=== PATIENT | female | born 1955 | race Caucasian/White ===

== ENCOUNTER → 2020-06-14 | Outpatient (CLI) | payer OTHER ==
[~2020-06-14] MED LIST: APPLE CIDER VI600 MG PO; EUTHYROX50 MCG PO; HAIR, SKIN AND1 EAC1 PO; HYDROCHLOROTHIA25 M1 PO; IBUPROFEN 800800 M1 PO; NORVASC5 MG PO; OMEPRAZOLE 20 M20 M1 PO; PRAMIPEXOLE DI1.5 MG PO; PROBIOTIC1 EAC7 PO; REMERON 30 MG T30 M1 PO; VITAMIN D31250 MCG PO
[2020-06-14 13:51] LABS: HEMATOCRIT 42.4 % (37.0-47.0); HEMOGLOBIN 13.7 gm/dL (12.0-15.0); MCHC 32.4 g/dL (28.0-37.0); MCV 89.3 fL (80.0-100.0); RBC 4.75 mil/uL (4.20-5.00); RDW 14.5 % (10.5-14.5); WBC 5.6 thou/uL (4.0-11.0)
[2020-06-14 14:00] LABS: ALBUMIN 4.5 g/dL (3.4-5.0); CALCIUM 9.5 mg/dL (8.5-10.1); CREATININE 1.1 mg/dL (0.6-1.0); POTASSIUM 4.1 mmol/L (3.5-5.1)
[2020-06-14 14:03] LABS: PROTIME 10.3 Seconds (9.3-11.4)
[2020-06-14 14:05] LABS: URINE BILIRUBIN NEGATIVE (Negative); URINE BLOOD NEGATIVE (Negative); URINE CLARITY CLEAR; URINE COLOR YELLOW; URINE GLUCOSE-RANDOM* NEGATIVE (Negative); URINE KETONES NEGATIVE (Negative); URINE NITRITE-REFLEX NEGATIVE (Negative); URINE PROTEIN (DIPSTICK) NEGATIVE (Negative); URINE SPECIFIC GRAVITY 1.025 (1.005-1.035); URINE UROBILINOGEN 0.2 E.U./dl (0.2-1.0)
[2020-06-14 14:06] LABS: URINE LEUKOCYTES-REFLEX 1+ (Negative)
[2020-06-14 14:22] LABS: SQUAMOUS 0-3 Few /LPF (0-3); URINE RBC None Seen /HPF (0-2)
[2020-06-14 14:23] LABS: BACTERIA-REFLEX >30 Many /HPF (None Seen); CASTS None Seen /LPF (None Seen); CRYSTALS None Seen /LPF (None Seen); URINE WBC-REFLEX 6-15 Few /HPF (0-5)
--- NOTE | 2020-06-17 07:20 | EKG ---
[place] [address] [facility] [place] [address] ELECTROCARDIOGRAM REPORT Name: CRESCENCIOALLA Room #: REG [facility]#: [id number] Admission: 06/14/20 Attend Phys: Edgard Carrasco MD Discharge: Date of : 51 Report #: [id number] [facility] Test Date: 2020-06-14 Test Time: 13:07:28 Pat Name: ALLA PRATHER Department: Room: Gender: F Communications Tech: Thong CALVERT : 1955 Requested By: Edgard Carrasco Order Number: [id number] MD: Vlad Georges Measurements Intervals [place] Rate: 86 P: 66 IL: 173 QRS: 38 QRSD: 90 T: 50 QT: 390 QTc: 467 Interpretive Statements Sinus rhythm Compared to ECG 04/03/2004 12:22:00 No significant changes Electronically Signed On 06-17-2020 7:20:01 CDT by Vlad Georges [email or web address] <ELECTRONICALLY SIGNED> By: Vlad Georges MD, [facility] 06/17/20 0720 1307 1307 Vlad Georges MD, FACC /EPI
== END ==
LOC: LAB 11:28
PROVIDERS: ATTEND Orthopaedic Surgery
DX: Z01.812 Encounter for preprocedural laboratory examination (principal); Z20.822 Contact with and (suspected) exposure to COVID-19

== ENCOUNTER 2020-06-20 06:09 | Observation (INO) | payer OTHER ==
[~2020-06-20] VITALS: Ht 172.7 cm; Wt 105.7 kg
[2020-06-20] VITALS (9 sets, daily range): BP systolic 124–152; BP diastolic 67–87
--- NOTE | 2020-06-20 12:39 | NUR ---
Admit from OR at 10:39am, s/p Rt TKA; transferred to bed safely. Post op vital signs taken and recorded. On MS, not on telemetry; no complains and signs of chest pain, crushing sensation and heaviness. Assisted in ADLs. On O2 at 1lpm via nasal cannula- not using O2 at home; for post op use. On regular diet for lunch time; tolerated clear liquids upon arriving in the unit; no nausea, no vomiting and no abdominal pain noted. With SL at L hand- D51/2NS at 100cc/hr infused as ordered. S/P R TKA- CHIKI dressing in place; SCDs, LEBRON hose and polar pack in place; no bleeding and drainage noted. Complained of pain, due PRN pain meds given as prescribed. Admission assessment, education and history done; admission forms signed as well. To continue monitoring patient.
--- NOTE | 2020-06-20 14:45 | NUR ---
ASSESSMENT: CM REVIEWED CHART. PT IS S/P RIGHT TKA. PT REPORTS THAT SHE LIVES IN A DOUBLE WIDE MOBILE HOME WITH HER . PT REPORTS HAVING ABOUT 6 STEPS TO ENTER THE HOME WITH A HANDRAIL. PT REPORTS THAT ONCE INSIDE SHE HAS NO STEPS. PT REPORTS SHE DOES NOT HAVE A CANE OR WALKER AT HOME AND IS NORMALLY INDEPENDENT. PT REPORTS THAT SHE HAS A GRAB BAR IN THE SHOWER, STOOL RISER, AND A SHOWER BENCH. PT DENIES HAVING OXYGEN AT HOME. PT REPORTS THAT SHE HAS OUTPATIENT THERAPY ARRANGED AT [facility] IN [place], [place] TO START ON Wednesday06/25/20. PT WILL LIKELY NEED A WALKER FOR DISCHARGE BUT AWAITING PHYSICAL THERAPY EVAL. CM WILL CONTINUE TO FOLLOW TO ASSIST NEEDED.
[2020-06-21 03:45] VITALS: BP 145/69
--- NOTE | 2020-06-21 05:02 | NUR ---
PT AOX4. PT REPORTS 4/10 HEADACHE PAIN. PT RECEIVING SCHEDULED BID PO MORPHINE ER, PRN PO APAP Q3HR WITH PRN PO NORCO Q4HR AND PRN IV MORPHINE Q1HR AVAILABLE. PT DENIES SOB WHILE ON ROOM AIR. PT INTERMITTENTLY WITH NONPRODUCTIVE COUGH. PT TOLERATING PO INTAKE OF FLUIDS AND REGULAR DIET WITHOUT ISSUE. PT WITHOUT NAUSEA OR EMESIS. PT AMBULATING WITH WALKER AND X1 ASSIST TO BATHROOM, RESTING IN BED OTHERWISE. FREQUENT REPOSITIONING ENCOURAGED WHILE IN BED, PT NOTED TO SHIFT INDEPENDENTLY WHILE IN BED. PT DENIES NUMBNESS AND TINGLING, SENSATION INTACT AND CAPILLARY REFILL LESS THAN 3SEC IN ALL EXTREMITIES. PT ENCOURAGED TO NOTIFY STAFF FOR ALL NEEDS, CALL LIGHT WITHIN REACH, BED ALARM ON, BED LOCKED IN LOWEST POSITION, FREQUENT MONITORING WILL CONTINUE.
[2020-06-21 06:13] LABS: HEMATOCRIT 33.9 % (37.0-47.0); HEMOGLOBIN 11.1 gm/dL (12.0-15.0); MCH 29.2 pg (26.0-34.0); MCHC 32.8 g/dL (28.0-37.0); MCV 88.9 fL (80.0-100.0); RBC 3.81 mil/uL (4.20-5.00); RDW 14.4 % (10.5-14.5); WBC 8.3 thou/uL (4.0-11.0)
[2020-06-21 08:16] VITALS: BP 133/71
--- NOTE | 2020-06-21 11:10 | NUR ---
ON-GOING ASSESSMENT: CM REVIEWED CHART AND SPOKE WITH PHYSICAL THERAPIST WHO REPORTS PT IS MEDICALLY STABLE FOR DISCHARGE AND SHE WILL ISSUE HER A WALKER TODAY (CM ALREADY SPOKE WITH PROVIDER PLUS WHO VERIFIED HER INSURANCE AND STATED ONE COULD BE ISSUED). PT ALREADY HAS OUTPATIENT THERAPY ARRANGED. CASE CLOSED.
[2020-06-21 11:11] VITALS: BP 133/71
--- NOTE | 2020-06-21 11:25 | NUR ---
Assumed care of pt at 0700. Pt a&ox4. Pain controlled with prn pain meds. Dressing c/d/i. Pt worked with physical therapy and cleared to go home. Walker delivered in room. Pt will discharge to home. Family at bedside.
[2020-06-21 11:46] VITALS: BP 133/71
--- NOTE | 2020-06-25 14:06 | O ---
[facility] [place] [address] OPERATIVE REPORT Name: ALLA PRATHER Room #: 440-P [facility] Maura Cannon#: [id number] Admission: 06/20/20 Attend Phys: Edgard Carrasco MD Discharge: 06/21/20 Date of : 51 Report #: [id number] THIS REPORT FOR: cc: Mathew Martínez,Mathew Walsh,Edgard Britt MD ~ DATE OF SERVICE: 06/20/2020 PREOPERATIVE DIAGNOSIS: Right knee osteoarthritis. POSTOPERATIVE DIAGNOSIS: Right knee osteoarthritis. PROCEDURE: Right total knee arthroplasty using Navio robotic assistant product manager. SURGEON: Edgard Carrasco MD. PLUSH DRESSER: Cecilia Serna PA-C. INDICATIONS FOR PLUSH DRESSER: Throughout the case, extensive retraction and manipulation of the knee was required. This was afforded to me by my assistant product manager. ANESTHESIA: LMA with an adductor canal block. IMPLANTS: [employer]hew size 7 Journey II BCS cobalt chrome femur, size 5 tibia, size 9 constrained polyethylene and size 35 patella. TOURNIQUET TIME: 54 minutes. ESTIMATED BLOOD LOSS: 25 mL. COMPLICATIONS: None. SPECIMENS: None. CONDITION UPON LEAVING THE OPERATING ROOM: Stable. INDICATIONS FOR PROCEDURE: The patient is a 64-year-old female with right knee osteoarthritis. She had failed conservative measures for this and after discussion with her, she elected for right total knee arthroplasty. DESCRIPTION OF PROCEDURE: Risks, benefits, alternatives, complications were discussed in detail with the patient including but not limited to risk of anesthesia, risk of damage to nerves, arteries, blood vessels, risk for infection, bleeding, risk for continued knee pain, need for reoperation. Informed consent was obtained from the patient. Right knee was appropriately [address] [address] OPERATIVE REPORT Name: JOSE ALFREDO PRATHERNatalya MOYA Room #: 440-P [facility] Maura Cannon#: [id number] Admission: 06/20/20 Attend Phys: Edgard Carrasco MD Discharge: 06/21/20 Date of : 51 Report #: [id number] marked in the preoperative holding area. IV Ancef was given for preoperative antibiotics. She was brought to the operating room and placed in supine position on operating room table. LMA anesthesia was induced without complication. Tourniquet was placed on the right thigh. Right lower extremity was prepped and draped in normal sterile fashion. Timeout was performed properly identifying the patient and procedure as well as the instrumentation and implants. All in the operating room were in agreement. Right lower extremity was exsanguinated, tourniquet was inflated. Tourniquet time was 54 minutes. Standard midline approach to the knee was made with a #10 blade through the skin. Dissection was taken down sharply to the fascia and deep flaps were developed medially and laterally. Fresh 10 blade was used to make a medial parapatellar arthrotomy and the knee was inspected. There was severe tricompartmental osteoarthritis. ACL and PCL were removed sharply. Reference pins were placed in the femur and the tibia and the knee was digitally mapped using the Agile[employer]ano robotic system. Intraoperative plan was made and we sized the size 7 femur with a size 5 tibia and a 10 spacer. After acceptance of the intraoperative plan, the distal femoral cut was made with Navio bur. Distal femoral cutting block was pinned in place and chamfer cuts were made. Attention was turned to the tibia. Remainder of the menisci removed with Bovie cautery. Tibial resection guide was pinned in place using the Navio for placement and tibial resection was made. After this, flexion and extension gaps were checked and found to be somewhat tight medially in extension and limited medial release was performed using the pie crust technique. This balanced the knee well. Tibia was sized, found to be a size 5. A size 5 tibial trial was placed, pinned and punched. A size 7 femoral trial was placed and box cut was made. This was then trialed with a size 9 polyethylene and the size 9 polyethylene demonstrated good balance medially throughout range of motion. She did have up to 2 mm of laxity laterally and it was felt we could make up for this with a constrained implant, 9 mm of bone was resected from the posterior surface of the patella and a size 35 patellar trial button was placed. Knee was taken through range of motion, found to be stable, found to have good patellar tracking. Trial components were removed. Bony ends were thoroughly irrigated with normal saline. A final size 5 tibia, size 7 Journey II BCS cobalt chrome femur and a size 35 patella were cemented in place using standard cementation techniques. While the cement cured, a periarticular injection consisting of morphine, ropivacaine, epinephrine, Toradol was placed around the knee joint capsule. After the cement cured, tourniquet was deflated. Hemostasis was obtained with Bovie cautery. Final size 9 constrained polyethylene was placed. A gram of vancomycin was placed deep in the joint. Fascia was closed with 0 Vicryl, skin was closed with 2-0 Vicryl, skin staple and a CHIKI dressing was applied. The [address] [address] OPERATIVE REPORT Name: ALLA PRATHER Room #: 440-P [facility] Cannon#: [id number] Admission: 06/20/20 Attend Phys: Edgard Carrasco MD Discharge: 06/21/20 Date of : 51 Report #: [id number] patient tolerated this procedure well and went to the recovery room under the care of Anesthesia postoperatively. <ELECTRONICALLY SIGNED> By: Edgard Carrasco MD 06/25/20 1406 1147 1310 Edgard Carrasco MD /nt
== END 2020-06-21 12:41 | disposition home or self-care (01) ==
LOC: OR 06:09 → TBA 06:09 → 4S 10:39 → OR 10:39 → 4S 06-21 12:41
PROVIDERS: ADMIT Orthopaedic Surgery; ATTEND Orthopaedic Surgery
DX: M17.11 Unilateral primary osteoarthritis, right knee (principal); Z79.899 Other long term (current) drug therapy
CPT/HCPCS: 27447; S2900; 50010; 50101; 50415; 50954; 51130; 51225; 51320; 52001; 52282; 53000; 53078; 56527; 56528; 57095; 57103; 57110; 57127; 57180; 58239; 62110; 62900; 70005